=== PATIENT | male | born 1990 | race Caucasian/White ===

== ENCOUNTER 2016-12-06 17:34 | Emergency (ER) | payer OTHER ==
[~2016-12-06] VITALS: Ht 177.8 cm; Wt 59.0 kg
[2016-12-06 17:55] VITALS: BP 113/73; PULSE 73; RESP 16; TEMP 98.1; O2SAT 99
[2016-12-06] MEDS ORDERED: VORT1TAB PO (18:11)
[2016-12-06] MEDS ORDERED: CLON0.5T PO (18:11)
[2016-12-06] MEDS ORDERED: TETANUS/DIPHTHERIA TOXOID ADULT 0.5 ML VIAL IM ONE (18:15)
[2016-12-06] MEDS ORDERED: AMOXICILLIN/CLAVULANATE K 875 MG TAB PO ONE (18:15)
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
[2016-12-06] MEDS ORDERED: IBUPROFEN 800 MG TAB PO ONE (19:15)
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
[2016-12-06] MEDS ORDERED: AUGM875T3 PO (19:50)
[2016-12-06 19:58] VITALS: BP 115/68
== END 2016-12-06 19:57 | disposition home or self-care (01) ==
LOC: PHED 17:34 → PHEFT 19:57
DX: S01.81XA Laceration without foreign body of other part of head, initial encounter (principal); Y04.0XXA Assault by unarmed brawl or fight, initial encounter; Z23 Encounter for immunization; F17.210 Nicotine dependence, cigarettes, uncomplicated
CPT/HCPCS: 70486; 90471; 90714